=== PATIENT | male | born 1980 | race African-American/Black ===

== ENCOUNTER 2017-07-22 18:38 | Emergency (ER) | payer SELFPAY ==
[2017-07-22] MEDS ORDERED: HYDROcodone/Acetaminophen 10/325 mg Tablet ONE (18:44)
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
== END 2017-07-22 19:30 | disposition home or self-care (01) ==
LOC: ERS 18:38
DX: S41.012A Laceration without foreign body of left shoulder, initial encounter (principal); R93.8 Abnormal findings on diagnostic imaging of other specified body structures; J45.909 Unspecified asthma, uncomplicated; B20 Human immunodeficiency virus [HIV] disease; J18.9 Pneumonia, unspecified organism; F41.9 Anxiety disorder, unspecified; F31.9 Bipolar disorder, unspecified; F20.9 Schizophrenia, unspecified; Z87.891 Personal history of nicotine dependence; Z79.899 Other long term (current) drug therapy; V43.52XA Car driver injured in collision with other type car in traffic accident, initial encounter
CPT/HCPCS: 71045

== ENCOUNTER 2017-07-30 08:14 | Emergency (ER) | payer MEDICARE, SELFPAY ==
[2017-07-30] MEDS ORDERED: HYDROcodone/Acetaminophen 10/325 mg Tablet ONE (09:02)
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
== END 2017-07-30 09:33 | disposition home or self-care (01) ==
LOC: ERS 08:14
DX: S43.102A Unspecified dislocation of left acromioclavicular joint, initial encounter (principal); F31.9 Bipolar disorder, unspecified; J45.909 Unspecified asthma, uncomplicated; Z21 Asymptomatic human immunodeficiency virus [HIV] infection status; Z87.891 Personal history of nicotine dependence; Z79.899 Other long term (current) drug therapy; V49.9XXA Car occupant (driver) (passenger) injured in unspecified traffic accident, initial encounter

== ENCOUNTER 2022-10-14 04:28 | Emergency (ER) | payer MEDICAID, OTHER ==
[2022-10-14] MEDS ORDERED: Ibuprofen 200 MG TAB ONE (04:56)
[2022-10-14] MEDS ORDERED: Mag-Al 1200 mg/1200 mg/30 ML UDCUP ONE ×2 (04:56→06:39)
[2022-10-14] MEDS ORDERED: Ondansetron ODT 4 MG TAB ONE (04:56)
[2022-10-14 06:29] LABS: SARS-CoV-2 NAA Rapid Test DETECTED (NotDetected)
[2022-10-14] MEDS ORDERED: Lidocaine 2% Viscous Solution 10 ML, Aluminum & Magnesium Hydroxide 30 ML SSW SCH (07:00)
== END 2022-10-14 08:15 | disposition home or self-care (01) ==
LOC: ERS 04:28
DX: U07.1 COVID-19 (principal); F17.210 Nicotine dependence, cigarettes, uncomplicated
CPT/HCPCS: 0240U; 71045; 87081; 87430; 99284; Q0162

== ENCOUNTER 2022-11-05 08:35 | Emergency (ER) | payer OTHER ==
[2022-11-05 09:15] LABS: Hematocrit 27.5 % (42.0-52.0); Hemoglobin 8.7 g/dL (14.0-18.0); Mean Corpuscular HGB CONC 31.6 g/dL (32.0-36.0); Mean Corpuscular Volume 82.3 fl (78.0-98.0); Mean Platelet Volume 10.3 fL (7.4-10.4); Platelet Count 459 10x3/uL (130-400); Red Blood Cell (RBC) Count 3.34 mill/uL (4.70-6.10); White Blood Cell (WBC) Count 9.4 10x3/uL (4.8-10.8)
[2022-11-05 09:17] LABS: Delete Auto Diff?? YES; Manual Diff?? YES
[2022-11-05] MEDS ORDERED: Ketorolac Tromethamine 30 MG/ML VIAL ONE (09:21)
[2022-11-05 09:46] LABS: Anisocytosis SLIGHT = 6-15 cells HPF (0-5); Band 9 % (5-11); Burr Cells SLIGHT = 2-5 cells HPF (0-1); CellaVision Operator ID lab.dlt; Lymphocytes 4 % (21-51); Monocytes 14 % (0-10); Neutrophil 73 % (42-75); Ovalocytes SLIGHT = 2-5 cells HPF (0-1); Platelet Adequacy Comment Platelets Increased; Poikilocytosis SLIGHT = 6-15 cells HPF (0-5); Polychromasia SLIGHT = 2-3 cells HPF (0-2); Reactive Lymphocytes 1 % (0-10); Total Cell Count 102
[2022-11-05 09:52] LABS: ALT (SGPT) 9 U/L (8-55); AST (SGOT) 18 U/L (5-34); Albumin 2.5 g/dL (3.5-5.0); Alkaline Phosphatase 42 U/L (40-110); Anion Gap 12 mmol/L (10-20); BUN (Urea Nitrogen) 21 mg/dL (8.9-20.6); Bilirubin, Total 0.2 mg/dL (0.2-1.2); Calc. Creatinine Clearance 0 mL/min (70-130); Calcium 8.5 mg/dL (7.8-10.44); Carbon Dioxide 20 mmol/L (22-29); Chloride 107 mmol/L (98-107); Estimated GFR 116; Glucose 166 mg/dL (70-105); Potassium 3.8 mmol/L (3.5-5.1); Protein, Total 6.5 g/dL (6.0-8.3); Sodium 135 mmol/L (136-145)
[2022-11-05 12:41] LABS: Lactic Acid 1.3 mmol/L (0.5-2.2)
[2022-11-05 12:48] LABS: Bacteria/HPF None Seen HPF (None Seen); Bilirubin Negative (Negative); Blood, Urine Negative (Negative); CAUTI Indications for Culture Dysuria,urgency,freq; Clarity Clear (Clear); Glucose, Urine (Dipstick) Normal (Negative); Ketone, Urine Negative (Negative); Leukocyte Negative Leu/uL (Negative); Nitrite Negative (Negative); Protein, Urine (Dipstick) 10 mg/dL (Neg-Trace); RBC/HPF 0-3 HPF (0-3); Squamous Epithelial None Seen HPF (0-3); Urobilinogen Normal mg/dL (Less than 2); WBC/HPF 0-3 HPF (0-3); pH, Urine 6.5 (5.0-9.0)
[2022-11-05 12:52] LABS: Urine Culture Reflex No No
[2022-11-05 13:14] LABS: Specific Gravity, Urine Greater than 1.060 (1.002-1.036)
[2022-11-05] MEDS ORDERED: Iopamidol-370 76% 500 ML MDV (1 ML CHARGE) ONE (15:29)
== END 2022-11-05 13:29 | disposition short-term general hospital (02) ==
LOC: ERS 08:35
DX: R50.9 Fever, unspecified (principal); D64.9 Anemia, unspecified; R06.00 Dyspnea, unspecified; B20 Human immunodeficiency virus [HIV] disease; F17.210 Nicotine dependence, cigarettes, uncomplicated
CPT/HCPCS: 36415; 71045; 71275; 80053; 81001; 83605; 85025; 87040; 93005; 96361; 96374; J1885; Q9967

== ENCOUNTER 2023-08-06 00:22 | Inpatient (IN) | payer OTHER ==
[2023-08-06 01:35] VITALS: BMI 22.4
[2023-08-06] MEDS ORDERED: guaiFENesin/Codeine 200 mg/20 mg 10 ml Cup PO PRN (01:46)
[2023-08-06] MEDS ORDERED: Albuterol 2.5 MG (3 mL) NEB NEB PRN (01:48)
[2023-08-06] MEDS ORDERED: hydrOXYzine 25 MG TAB PO PRN (01:50)
[2023-08-06] MEDS ORDERED: Ondansetron ODT 4 MG TAB PO PRN (01:52)
[2023-08-06] MEDS ORDERED: Ondansetron PF 4 MG/2 ML Vial IVP PRN (01:52)
[2023-08-06] MEDS ORDERED: Acetaminophen 325 MG TAB PO PRN (01:52)
[2023-08-06] MEDS: Doxycycline 100 MG in Sodium Chloride 0.9% 100 ML IVPB SCH (03:05)
[2023-08-06] MEDS: Gabapentin 100 MG CAP PO PRN (03:08)
[2023-08-06 05:36] LABS: ALT (SGPT) 5 U/L (8-55); AST (SGOT) 17 U/L (5-34); Albumin 2.8 g/dL (3.5-5.0); Alkaline Phosphatase 54 U/L (40-110); Anion Gap 12 mmol/L (10-20); BUN (Urea Nitrogen) 15 mg/dL (8.9-20.6); Bilirubin, Total 0.7 mg/dL (0.2-1.2); Calc. Creatinine Clearance 89 mL/min (70-130); Calcium 8.5 mg/dL (7.8-10.44); Carbon Dioxide 20 mmol/L (22-29); Chloride 112 mmol/L (98-107); Estimated GFR 94; Globulin 4.6 g/dL (2.4-3.5); Glucose 163 mg/dL (70-105); Potassium 4.7 mmol/L (3.5-5.1); Protein, Total 7.4 g/dL (6.0-8.3); Sodium 139 mmol/L (136-145)
[2023-08-06 06:00] LABS: #Basophils Less than 0.03 10x3/uL (0.0-0.2); #Eosinphils Less than 0.03 10x3/uL (0.0-0.7); %Basophils 0.2 % (0.0-1.0); %Lymphocytes 6.9 % (21.0-51.0); %Monocytes 4.5 % (0.0-10.0); %Neutrophils 87.3 % (42.0-75.0); Hematocrit 38.7 % (42.0-52.0); Hemoglobin 12.4 g/dL (14.0-18.0); Mean Corpuscular Hemoglobin 26.9 pg (27.0-31.0); Mean Corpuscular Volume 83.9 fL (78.0-98.0); Mean Platelet Volume 11.2 fL (7.4-10.4); Platelet Count 175 10x3/uL (130-400); RBC Distribution Width 14.6 % (11.5-14.5); Red Blood Cell (RBC) Count 4.61 mill/uL (4.70-6.10)
[2023-08-06] MEDS: Mometasone 100 MCG/Formoterol 5 MCG 120 PUFF INHALER INH SCH (07:16)
[2023-08-06] MEDS: Famotidine/PF 20 mg/2ml Vial SLOW IVP SCH (07:56)
[2023-08-06] MEDS: Famotidine 20 MG TAB PO SCH (07:58)
[2023-08-06] MEDS: LevoFLOXacin 750 mg/D5W 750 MG in Premix 1 BAG IVPB SCH (07:58)
[2023-08-06 08:06] VITALS: TEMP 97.7
[2023-08-06] MEDS ORDERED: Azithromycin 500 MG in Sodium Chloride 0.9% 250 ML 250 ML IVPB SCH (09:00)
[2023-08-06] MEDS ORDERED: [UNRECOGNIZED DRUG - OTHER] PO SCH (09:00)
[2023-08-06 11:47] VITALS: BP 119/81
[2023-08-06] MEDS ORDERED: QUEtiapine 100 MG TAB PO SCH (21:00)
== END 2023-08-06 13:02 | disposition left against medical advice (07) | DRG 975 ==
LOC: T4-A 01:15
PROVIDERS: ADMIT Student in an Organized Health Care Education/Training Program; ATTEND Internal Medicine
DX: B20 Human immunodeficiency virus [HIV] disease (principal); J44.0 Chronic obstructive pulmonary disease with (acute) lower respiratory infection; J18.9 Pneumonia, unspecified organism; G40.909 Epilepsy, unspecified, not intractable, without status epilepticus; J45.909 Unspecified asthma, uncomplicated; F19.10 Other psychoactive substance abuse, uncomplicated; F17.210 Nicotine dependence, cigarettes, uncomplicated; Z88.2 Allergy status to sulfonamides; Z88.1 Allergy status to other antibiotic agents; Z79.51 Long term (current) use of inhaled steroids; Z79.891 Long term (current) use of opiate analgesic; Z90.49 Acquired absence of other specified parts of digestive tract
CPT/HCPCS: 36415; 80053; 85025; 94664; J1956; J3490

== ENCOUNTER 2024-02-10 15:04 | Emergency (ER) | payer OTHER, MEDICARE ==
[2024-02-10 15:35] LABS: #Basophils 0.03 10x3/uL (0.0-0.2); %Basophils 0.8 % (0.0-1.0); %Eosinophils 4.8 % (0.0-10.0); %Lymphocytes 25.7 % (21.0-51.0); %Neutrophils 50.4 % (42.0-75.0); Hematocrit 37.8 % (42.0-52.0); Hemoglobin 12.2 g/dL (14.0-18.0); Mean Corpuscular HGB CONC 32.3 g/dL (32.0-36.0); Mean Corpuscular Hemoglobin 26.7 pg (27.0-31.0); Mean Corpuscular Volume 82.7 fL (78.0-98.0); Platelet Count 222 10x3/uL (130-400); RBC Distribution Width 14.3 % (11.5-14.5); Red Blood Cell (RBC) Count 4.57 mill/uL (4.70-6.10)
[2024-02-10 15:48] LABS: ALT (SGPT) 7 U/L (8-55); AST (SGOT) 14 U/L (5-34); Albumin 3.1 g/dL (3.5-5.0); Alkaline Phosphatase 72 U/L (40-110); Anion Gap 12 mmol/L (10-20); BUN (Urea Nitrogen) 14 mg/dL (8.9-20.6); Bilirubin, Total 0.4 mg/dL (0.2-1.2); Calc. Creatinine Clearance 0 mL/min (70-130); Calcium 9.3 mg/dL (7.8-10.44); Carbon Dioxide 23 mmol/L (22-29); Chloride 110 mmol/L (98-107); Estimated GFR 91; Globulin 4.7 g/dL (2.4-3.5); Glucose 102 mg/dL (70-105); Potassium 4.1 mmol/L (3.5-5.1); Protein, Total 7.8 g/dL (6.0-8.3); Sodium 141 mmol/L (136-145)
[2024-02-10] MEDS ORDERED: Morphine 4 MG/ML VIAL ONE (17:26)
[2024-02-10] MEDS ORDERED: Ketorolac Tromethamine 30 MG (1 mL) VIAL ONE (17:26)
== END 2024-02-10 18:30 | disposition home or self-care (01) ==
LOC: ERS 15:04
DX: K61.1 Rectal abscess (principal); B20 Human immunodeficiency virus [HIV] disease; F17.210 Nicotine dependence, cigarettes, uncomplicated
CPT/HCPCS: 36415; 74177; 80053; 83605; 85025; J1885; J2272; 96374; 96375

== ENCOUNTER 2024-02-19 15:10 | Emergency (ER) | payer OTHER ==
[~2024-02-19 15:10] MED LIST: Iopamidol-370 76% 500 ML MDV (1 ML CHARGE) ONE
[2024-02-19] MEDS ORDERED: Ondansetron PF 4 MG/2 ML Vial ONE (15:54)
[2024-02-19] MEDS ORDERED: Ketorolac Tromethamine 30 MG (1 mL) VIAL ONE (15:55)
[2024-02-19] MEDS ORDERED: Pantoprazole 40 MG VIAL ONE (15:56)
[2024-02-19 16:18] LABS: ALT (SGPT) 7 U/L (8-55); AST (SGOT) 16 U/L (5-34); Albumin 2.9 g/dL (3.5-5.0); Alkaline Phosphatase 52 U/L (40-110); Anion Gap 14 mmol/L (10-20); BUN (Urea Nitrogen) 12 mg/dL (8.9-20.6); Bilirubin, Total 0.5 mg/dL (0.2-1.2); Calc. Creatinine Clearance 0 mL/min (70-130); Calcium 8.6 mg/dL (7.8-10.44); Carbon Dioxide 21 mmol/L (22-29); Chloride 109 mmol/L (98-107); Estimated GFR 116; Glucose 100 mg/dL (70-105); Lipase 21 U/L (8-78); Potassium 3.9 mmol/L (3.5-5.1); Protein, Total 7.9 g/dL (6.0-8.3); Sodium 140 mmol/L (136-145)
[2024-02-19 16:38] LABS: Anisocytosis SLIGHT = 6-15 cells HPF (0-5); Macrocytosis SLIGHT = 6-15 cells HPF (0-5); Ovalocytes SLIGHT = 2-5 cells HPF (0-1); Platelet Adequacy Comment Platelets Normal; Polychromasia SLIGHT = 2-3 cells HPF (0-2); Tear Drops SLIGHT = 2-5 cells HPF (0-1)
[2024-02-19 16:49] LABS: #Basophils 0.04 10x3/uL (0.0-0.2); %Basophils 1.4 % (0.0-1.0); %Eosinophils 4.6 % (0.0-10.0); %Lymphocytes 20.7 % (21.0-51.0); %Monocytes 24.6 % (0.0-10.0); %Neutrophils 46.2 % (42.0-75.0); Hematocrit 37.2 % (42.0-52.0); Hemoglobin 11.9 g/dL (14.0-18.0); Mean Corpuscular Hemoglobin 26.3 pg (27.0-31.0); Mean Corpuscular Volume 82.1 fL (78.0-98.0); Mean Platelet Volume 9.7 fL (7.4-10.4); Platelet Count 220 10x3/uL (130-400); RBC Distribution Width 14.2 % (11.5-14.5); Red Blood Cell (RBC) Count 4.53 mill/uL (4.70-6.10)
[2024-02-19 17:15] LABS: Bacteria/HPF None Seen HPF (None Seen); Bilirubin Negative (Negative); Blood, Urine Negative (Negative); CAUTI Indications for Culture Dysuria,urgency,freq; Clarity Clear (Clear); Glucose, Urine (Dipstick) Normal (Negative); Ketone, Urine Negative (Negative); Leukocyte Negative Leu/uL (Negative); Nitrite Negative (Negative); Protein, Urine (Dipstick) 10 mg/dL (Neg-Trace); RBC/HPF None Seen HPF (0-3); Specific Gravity, Urine 1.031 (1.002-1.036); Squamous Epithelial None Seen HPF (0-3); Urobilinogen Normal mg/dL (Less than 2); WBC/HPF 0-3 HPF (0-3)
[2024-02-19 17:16] LABS: Urine Culture Reflex No No
[2024-02-19] MEDS ORDERED: Sucralfate 1 GM/10 ML UDCUP ONE (18:00)
== END 2024-02-19 18:05 | disposition home or self-care (01) ==
LOC: ERS 15:10
DX: K29.70 Gastritis, unspecified, without bleeding (principal); B20 Human immunodeficiency virus [HIV] disease; Z55.6 Problems related to health literacy; Z87.891 Personal history of nicotine dependence
CPT/HCPCS: 74177; 80053; 81001; 83605; 83690; 85025; J1885; J2405; J2470; 36415

== ENCOUNTER 2024-02-19 23:01 | Emergency (ER) | payer OTHER ==
[2024-02-20] MEDS ORDERED: Morphine 4 MG/ML VIAL ONE (00:56)
[2024-02-20] MEDS ORDERED: Ondansetron PF 4 MG/2 ML Vial ONE (00:57)
[2024-02-20] MEDS ORDERED: Ketorolac Tromethamine 30 MG (1 mL) VIAL ONE (02:52)
[2024-02-20 03:29] LABS: Bacteria/HPF None Seen HPF (None Seen); Bilirubin Negative (Negative); Blood, Urine Negative (Negative); CAUTI Indications for Culture Pelvic or flank pain; Clarity Clear (Clear); Glucose, Urine (Dipstick) Normal (Negative); Ketone, Urine Negative (Negative); Leukocyte Negative Leu/uL (Negative); Nitrite Negative (Negative); Protein, Urine (Dipstick) 10 mg/dL (Neg-Trace); RBC/HPF None Seen HPF (0-3); Specific Gravity, Urine 1.026 (1.002-1.036); Squamous Epithelial None Seen HPF (0-3); Urobilinogen Normal mg/dL (Less than 2); WBC/HPF None Seen HPF (0-3)
[2024-02-20 03:37] LABS: Amphetamine Detected (NotDetected); Barbiturates Screen Not Detected (NotDetected); Benzodiazepine Screen Not Detected (NotDetected); Cocaine Metabolite Screen Not Detected (NotDetected); Methadone Not Detected (NotDetected); Methamphetamine Detected (NotDetected); Opiate Screen Detected (NotDetected); Oxycodone Screen Not Detected (NotDetected); Phencyclidine (PCP) Not Detected (NotDetected); THC/Cannabinoid Screen Not Detected (NotDetected); Tricyclic Screen Not Detected (NotDetected)
[2024-02-20 03:43] LABS: Urine Culture Reflex No No
== END 2024-02-20 08:52 | disposition home or self-care (01) ==
LOC: ERS 23:01
DX: R10.9 Unspecified abdominal pain (principal); B20 Human immunodeficiency virus [HIV] disease; Z87.891 Personal history of nicotine dependence; K29.70 Gastritis, unspecified, without bleeding; Z55.6 Problems related to health literacy
CPT/HCPCS: 74176; 74177; 80053; 80306; 81001; 83605; 83690; 85025; 96361; 96374; 96375; 99284; J1885 ×2; J2272; J2405 ×2; J2470; 36415

== ENCOUNTER 2024-03-13 15:58 | Emergency (ER) | payer OTHER ==
[2024-03-13 16:49] LABS: Bacteria/HPF None Seen HPF (None Seen); Bilirubin Negative (Negative); Blood, Urine Negative (Negative); CAUTI Indications for Culture Pelvic or flank pain; Clarity Clear (Clear); Glucose, Urine (Dipstick) Normal (Negative); Ketone, Urine Negative (Negative); Leukocyte Negative Leu/uL (Negative); Nitrite Negative (Negative); Protein, Urine (Dipstick) 30 mg/dL (Neg-Trace); RBC/HPF 0-3 HPF (0-3); Specific Gravity, Urine 1.013 (1.002-1.036); Squamous Epithelial 0-3 HPF (0-3); WBC/HPF 0-3 HPF (0-3)
[2024-03-13 17:03] LABS: Urine Culture Reflex No No
[2024-03-13 17:07] LABS: #Basophils 0.04 10x3/uL (0.0-0.2); %Basophils 0.8 % (0.0-1.0); %Lymphocytes 15.7 % (21.0-51.0); %Monocytes 19.7 % (0.0-10.0); %Neutrophils 59.1 % (42.0-75.0); Hematocrit 35.3 % (42.0-52.0); Mean Corpuscular HGB CONC 31.2 g/dL (32.0-36.0); Mean Corpuscular Hemoglobin 25.6 pg (27.0-31.0); Mean Corpuscular Volume 82.1 fL (78.0-98.0); Mean Platelet Volume 10.2 fL (7.4-10.4); Platelet Count 240 10x3/uL (130-400); RBC Distribution Width 14.8 % (11.5-14.5)
[2024-03-13] MEDS ORDERED: Ondansetron ODT 4 MG TAB ONE (17:27)
[2024-03-13] MEDS ORDERED: Ketorolac Tromethamine 30 MG (1 mL) VIAL ONE (17:27)
[2024-03-13 17:31] LABS: ALT (SGPT) 16 U/L (Less than 45); AST (SGOT) 24 U/L (11-34); Albumin 2.7 g/dL (3.1-4.5); Alkaline Phosphatase 63 U/L (40-110); Anion Gap 13 mmol/L (10-20); BUN (Urea Nitrogen) 12 mg/dL (8.9-20.6); Calc. Creatinine Clearance 0 mL/min (70-130); Calcium 8.5 mg/dL (7.8-10.44); Carbon Dioxide 25 mmol/L (22-29); Chloride 107 mmol/L (98-107); Estimated GFR 96; Globulin 5.1 g/dL (2.4-3.5); Glucose 174 mg/dL (70-105); Lipase 31 U/L (8-78); Potassium 3.8 mmol/L (3.5-5.1); Protein, Total 7.8 g/dL (6.0-8.3); Sodium 141 mmol/L (136-145)
[2024-03-13 17:35] LABS: Troponin I Less than 0.010 ng/mL (< 0.028)
== END 2024-03-13 20:16 | disposition home or self-care (01) ==
LOC: ERS 15:58
DX: R10.13 Epigastric pain (principal); B20 Human immunodeficiency virus [HIV] disease; Z87.891 Personal history of nicotine dependence
CPT/HCPCS: 71046; 74177; 80053; 81001; 83690; 84484; 85025; 93005; 96374; 99284; J1885; Q0162; 36415; Q9967

== ENCOUNTER 2024-04-01 11:08 | Inpatient (IN) | payer OTHER ==
[2024-04-01] MEDS ORDERED: Iopamidol-370 76% 500 ML MDV (1 ML CHARGE) ONE (11:11)
[2024-04-01] MEDS ORDERED: fentaNYL 50 mcg/mL 1 mL Vial ONE (11:28)
[2024-04-01 11:51] LABS: Hematocrit 32.9 % (42.0-52.0); Hemoglobin 10.1 g/dL (14.0-18.0); Mean Corpuscular HGB CONC 30.7 g/dL (32.0-36.0); Mean Corpuscular Hemoglobin 25.2 pg (27.0-31.0); Mean Platelet Volume 9.3 fL (7.4-10.4); Platelet Count 216 10x3/uL (130-400); RBC Distribution Width 15.5 % (11.5-14.5); Red Blood Cell (RBC) Count 4.01 mill/uL (4.70-6.10)
[2024-04-01 11:59] LABS: ALT (SGPT) Less than 7 U/L (Less than 45); AST (SGOT) 17 U/L (11-34); Albumin 2.8 g/dL (3.1-4.5); Alkaline Phosphatase 43 U/L (40-110); Anion Gap 15 mmol/L (10-20); BUN (Urea Nitrogen) 10 mg/dL (8.9-20.6); Bilirubin, Total 0.5 mg/dL (0.3-1.2); Calc. Creatinine Clearance 0 mL/min (70-130); Calcium 8.8 mg/dL (7.8-10.44); Carbon Dioxide 25 mmol/L (22-29); Chloride 104 mmol/L (98-107); Estimated GFR 110; Glucose 94 mg/dL (70-105); Magnesium 1.9 mg/dL (1.6-2.6); Potassium 4.9 mmol/L (3.5-5.1); Protein, Total 7.8 g/dL (6.0-8.3); Sodium 139 mmol/L (136-145)
[2024-04-01 12:05] LABS: Troponin I Less than 0.010 ng/mL (< 0.028)
[2024-04-01 12:27] LABS: #Basophils Less than 0.03 10x3/uL (0.0-0.2); #Eosinophils Less than 0.03 10x3/uL (0.0-0.7); %Basophils 0.5 % (0.0-1.0); %Eosinophils 0.3 % (0.0-10.0); %Lymphocytes 16.3 % (21.0-51.0); %Monocytes 12.1 % (0.0-10.0); %Neutrophils 68.7 % (42.0-75.0); Ovalocytes MODERATE= 6-15 cells (100X) (0-1/hpf); Plasma Cells 0 % (0-0); Platelet Adequacy Comment Appears Adequate
[2024-04-01] MEDS ORDERED: Morphine 4 MG/ML VIAL ONE (13:16)
[2024-04-01] MEDS ORDERED: Sodium Chloride 0.9% 100 ML ONE (14:41)
[2024-04-01] MEDS ORDERED: Cefepime 2 GM VIAL ONE (14:41)
[2024-04-01] MEDS ORDERED: HYDROmorphone 0.5 MG/0.5 ML SYRINGE ONE (14:41)
[2024-04-01] MEDS ORDERED: Albuterol 2.5 MG (3 mL) NEB NEB PRN (15:48)
[2024-04-01] MEDS ORDERED: Gabapentin 100 MG CAP PO PRN (15:48)
[2024-04-01] MEDS ORDERED: Ondansetron PF 4 MG/2 ML Vial IVP PRN (15:49)
[2024-04-01] MEDS ORDERED: Ondansetron ODT 4 MG TAB PO PRN (15:49)
[2024-04-01] MEDS ORDERED: Acetaminophen 650 MG Suppository PR PRN (15:49)
[2024-04-01] MEDS ORDERED: Albuterol 200 PUFF INH INH PRN (16:11)
[2024-04-01 18:46] LABS: Bacteria/HPF None Seen HPF (None Seen); Bilirubin Negative (Negative); Blood, Urine Negative (Negative); CAUTI Indications for Culture Alt mental st,lethar; Clarity Clear (Clear); Glucose, Urine (Dipstick) Normal (Negative); Ketone, Urine Negative (Negative); Leukocyte Negative Leu/uL (Negative); Nitrite Negative (Negative); Protein, Urine (Dipstick) 30 mg/dL (Neg-Trace); RBC/HPF 0-3 HPF (0-3); Specific Gravity, Urine 1.047 (1.002-1.036); Squamous Epithelial None Seen HPF (0-3); Urobilinogen Normal mg/dL (Less than 2); WBC/HPF 0-3 HPF (0-3); pH, Urine 6.5 (5.0-9.0)
[2024-04-01 18:48] LABS: Urine Culture Reflex No No
[2024-04-01 18:50] LABS: Amphetamine Detected (NotDetected); Barbiturates Screen Not Detected (NotDetected); Benzodiazepine Screen Not Detected (NotDetected); Cocaine Metabolite Screen Not Detected (NotDetected); Methadone Not Detected (NotDetected); Methamphetamine Detected (NotDetected); Opiate Screen Detected (NotDetected); Oxycodone Screen Not Detected (NotDetected); Phencyclidine (PCP) Detected (NotDetected); THC/Cannabinoid Screen Not Detected (NotDetected); Tricyclic Screen Not Detected (NotDetected)
[2024-04-01 19:06] VITALS: BMI 18.0
[2024-04-01] MEDS: Ipratropium/Albuterol 3 ML NEB NEB SCH (19:17)
[2024-04-01 19:44] LABS: Legionella Urinary Ag Negative (Negative); Strep pneumo Urine Ag NEGATIVE (NEGATIVE)
[2024-04-01] MEDS: Morphine 4 MG/ML VIAL SLOW IVP PRN (20:44)
[2024-04-01] MEDS: Nystatin 500,000 UNITS/5 ML UDCUP SSW SCH (20:46)
[2024-04-01] MEDS: Famotidine/PF 20 mg/2ml Vial SLOW IVP SCH (20:46)
[2024-04-01] MEDS: Cefepime 2 GM in Sodium Chloride 0.9% 100 ML IVPB SCH (23:04)
[2024-04-02] MEDS: Vancomycin 1 GM in Premix 1 BAG IVPB SCH (00:55)
[2024-04-02 06:19] LABS: Hematocrit 28.1 % (42.0-52.0); Hemoglobin 8.9 g/dL (14.0-18.0); Mean Corpuscular HGB CONC 31.7 g/dL (32.0-36.0); Mean Corpuscular Hemoglobin 25.4 pg (27.0-31.0); Mean Corpuscular Volume 80.3 fL (78.0-98.0); Mean Platelet Volume 9.7 fL (7.4-10.4); Platelet Count 203 10x3/uL (130-400); RBC Distribution Width 15.5 % (11.5-14.5)
[2024-04-02 06:33] LABS: Vancomycin, Random 26.8 ug/mL (See Comment)
[2024-04-02 06:37] LABS: ALT (SGPT) Less than 7 U/L (Less than 45); AST (SGOT) 18 U/L (11-34); Albumin 2.5 g/dL (3.1-4.5); Alkaline Phosphatase 44 U/L (40-110); Anion Gap 14 mmol/L (10-20); BUN (Urea Nitrogen) 9 mg/dL (8.9-20.6); Bilirubin, Total 0.6 mg/dL (0.3-1.2); Calc. Creatinine Clearance 99 mL/min (70-130); Calcium 8.3 mg/dL (7.8-10.44); Carbon Dioxide 21 mmol/L (22-29); Chloride 105 mmol/L (98-107); Estimated GFR 116; Globulin 4.7 g/dL (2.4-3.5); Glucose 85 mg/dL (70-105); Potassium 3.9 mmol/L (3.5-5.1); Protein, Total 7.2 g/dL (6.0-8.3); Sodium 136 mmol/L (136-145)
[2024-04-02 07:03] LABS: Band 9 % (5-11); Large Platelets 5.9 % (0-5); Lymphocytes 11 % (21-51); Monocytes 13 % (0-10); Neutrophil 67 % (42-75); Platelet Adequacy Comment Platelets Normal; Smudge Cells 25.7 %; Tear Drops SLIGHT = 2-5 cells HPF (0-1)
[2024-04-02 07:24] LABS: Influenza A by NAA Not Detected (NotDetected); Influenza B by NAA Not Detected (NotDetected); SARS-CoV-2 NAA Rapid Test Not Detected (NotDetected)
[2024-04-02] MEDS ORDERED: Ipratropium/Albuterol 3 ML NEB NEB PRN (08:19)
[2024-04-02] MEDS: Bictegrav/Emtricit/Tenofov Ala 1 TAB Tab PO SCH (09:51)
[2024-04-02 10:07] VITALS: BMI 18.0
[2024-04-02] MEDS ORDERED: Magnevist 469MG/ML 20 ML VIAL ONE (11:02)
[2024-04-02] MEDS: Vancomycin 1.5 GRAM/300 ML BAG 1.5 GM in Premix 1 BAG IVPB SCH (20:31)
[2024-04-02] MEDS: Acetaminophen 325 MG TAB PO PRN (20:35)
[2024-04-03] MEDS: Ketorolac Tromethamine 30 MG (1 mL) VIAL IVP PRN (00:54)
[2024-04-03] MEDS: FLU (Fluarix Triv) TS24-25(6MOS UP)/PF 45 MCG/0.5 ML Syringe IM ONE (09:29)
[2024-04-04 06:01] LABS: Hematocrit 28.4 % (42.0-52.0); Hemoglobin 9.1 g/dL (14.0-18.0); Mean Corpuscular Hemoglobin 25.7 pg (27.0-31.0); Mean Corpuscular Volume 80.2 fL (78.0-98.0); Mean Platelet Volume 10.1 fL (7.4-10.4); Platelet Count 220 10x3/uL (130-400); RBC Distribution Width 15.3 % (11.5-14.5); Red Blood Cell (RBC) Count 3.54 mill/uL (4.70-6.10)
[2024-04-04 06:28] LABS: Vancomycin, Random 26.9 ug/mL (See Comment)
[2024-04-04 06:30] LABS: Anion Gap 15 mmol/L (10-20); BUN (Urea Nitrogen) 13 mg/dL (8.9-20.6); Calc. Creatinine Clearance 93 mL/min (70-130); Calcium 8.6 mg/dL (7.8-10.44); Carbon Dioxide 21 mmol/L (22-29); Chloride 106 mmol/L (98-107); Estimated GFR 114; Glucose 92 mg/dL (70-105); Potassium 4.1 mmol/L (3.5-5.1); Sodium 138 mmol/L (136-145)
[2024-04-04 11:52] VITALS: BP 99/62; TEMP 98.5
[2024-04-04] MEDS ORDERED: Vancomycin HCl 750 MG in Sodium Chloride 0.9% 250 ML 250 ML IVPB SCH (12:00)
== END 2024-04-04 13:58 | disposition home or self-care (01) | DRG 974 ==
LOC: ERS 11:08 → 2NO 15:33 → OBSVTOIN 04-02 14:43 → T4-B 04-03 19:47
PROVIDERS: ADMIT Internal Medicine; ATTEND Internal Medicine
PROC: 4A10X4Z Monitoring of Central Nervous Electrical Activity, External Approach (ICD-10-PCS; principal; 2024-04-02)
PROC: 3E03329 Introduction of Other Anti-infective into Peripheral Vein, Percutaneous Approach (ICD-10-PCS; 2024-04-02)
DX: A41.9 Sepsis, unspecified organism (principal); G92.8 Other toxic encephalopathy; B20 Human immunodeficiency virus [HIV] disease; C15.9 Malignant neoplasm of esophagus, unspecified; J44.0 Chronic obstructive pulmonary disease with (acute) lower respiratory infection; E44.0 Moderate protein-calorie malnutrition; Z68.1 Body mass index [BMI] 19.9 or less, adult; G40.909 Epilepsy, unspecified, not intractable, without status epilepticus; J18.9 Pneumonia, unspecified organism; F11.10 Opioid abuse, uncomplicated; F15.10 Other stimulant abuse, uncomplicated; R61 Generalized hyperhidrosis; J43.9 Emphysema, unspecified; J44.89 Other specified chronic obstructive pulmonary disease; Z90.49 Acquired absence of other specified parts of digestive tract; Z79.899 Other long term (current) drug therapy
CPT/HCPCS: 36415; 70450; 70553; 71045; 71275; 76376; 80048; 80053; 80202; 80306; 81001; 83605; 83735; 83880; 84145; 84484; 85025; 85027; 87040; 87081; 87449; 87633; 87899; 93005; 94640; 96375; 96376; G0378; J0692; J1171; J1885; J2270; J3010; J3370; J3490; J7620; Q9967

== ENCOUNTER 2024-04-05 21:32 | Emergency (ER) | payer OTHER ==
[2024-04-05 22:19] LABS: Hematocrit 30.9 % (42.0-52.0); Hemoglobin 9.9 g/dL (14.0-18.0); Mean Corpuscular Hemoglobin 25.6 pg (27.0-31.0); Mean Corpuscular Volume 79.8 fL (78.0-98.0); Platelet Count 336 10x3/uL (130-400); RBC Distribution Width 15.1 % (11.5-14.5); Red Blood Cell (RBC) Count 3.87 mill/uL (4.70-6.10)
[2024-04-05] MEDS ORDERED: HYDROcodone/Acetaminophen 5/325 mg Tablet ONE (22:28)
[2024-04-05 22:39] LABS: ALT (SGPT) 8 U/L (Less than 45); AST (SGOT) 29 U/L (11-34); Albumin 2.7 g/dL (3.1-4.5); Alkaline Phosphatase 63 U/L (40-110); Anion Gap 12 mmol/L (10-20); BUN (Urea Nitrogen) 10 mg/dL (8.9-20.6); Bilirubin, Total 0.3 mg/dL (0.3-1.2); Calc. Creatinine Clearance 0 mL/min (70-130); Calcium 8.7 mg/dL (7.8-10.44); Carbon Dioxide 25 mmol/L (22-29); Chloride 107 mmol/L (98-107); Estimated GFR 115; Globulin 5.4 g/dL (2.4-3.5); Glucose 98 mg/dL (70-105); Lipase 34 U/L (8-78); Potassium 4.3 mmol/L (3.5-5.1); Protein, Total 8.1 g/dL (6.0-8.3); Sodium 140 mmol/L (136-145)
[2024-04-05 22:41] LABS: Troponin I 0.011 ng/mL (< 0.028)
[2024-04-05 22:44] LABS: Anisocytosis SLIGHT = 6-15 cells HPF (0-5); Band 3 % (5-11); Elliptocytes SLIGHT = 2-5 cells HPF (0-1); Eosinophils 2 % (0-10); Hypochromia SLIGHT = 6-15 cells HPF (0-5); Large Platelets 20.4 % (0-5); Lymphocytes 24 % (21-51); Monocytes 18 % (0-10); Neutrophil 20 % (42-75); Ovalocytes SLIGHT = 2-5 cells HPF (0-1); Platelet Adequacy Comment Platelets Normal; Poikilocytosis SLIGHT = 6-15 cells HPF (0-5); Polychromasia SLIGHT = 2-3 cells HPF (0-2); Reactive Lymphocytes 28 % (0-10); Smudge Cells 21.4 %; Toxic Granulation SLIGHT; Vacuoles SLIGHT
[2024-04-05] MEDS ORDERED: Ketorolac Tromethamine 30 MG (1 mL) VIAL ONE (22:45)
[2024-04-05] MEDS ORDERED: Sucralfate 1 GM/10 ML UDCUP ONE (23:38)
[2024-04-05] MEDS ORDERED: Morphine 4 MG/ML VIAL ONE (23:39)
[2024-04-05] MEDS ORDERED: Lidocaine Viscous Sol 2% 15 ml UD Cup ONE (23:39)
[2024-04-05] MEDS ORDERED: Mag-Al 1200 mg/1200 mg/30 ML UDCUP ONE (23:39)
[2024-04-05] MEDS ORDERED: Famotidine 20 MG TAB ONE (23:39)
== END 2024-04-06 00:20 | disposition home or self-care (01) ==
LOC: ERS 21:32
DX: J18.9 Pneumonia, unspecified organism (principal); R07.81 Pleurodynia; B20 Human immunodeficiency virus [HIV] disease; Z87.891 Personal history of nicotine dependence
CPT/HCPCS: 71045; 80053; 83605; 83690; 83735; 83880; 84484; 85025; 93005; J1885; J2270; 36415

== ENCOUNTER 2024-11-11 06:32 | Emergency (ER) | payer OTHER, MEDICAID ==
[2024-11-11 08:55] LABS: #Basophils 0.03 10x3/uL (0.0-0.2); #Eosinophils 0.45 10x3/uL (0.0-0.7); #Monocytes 1.07 10x3/uL (0.11-0.59); #Neutrophils 4.80 10x3/uL (1.40-6.50); %Basophils 0.4 % (0.0-1.0); %Eosinophils 6.0 % (0.0-10.0); %Lymphocytes 14.2 % (21.0-51.0); %Monocytes 14.4 % (0.0-10.0); %Neutrophils 64.5 % (42.0-75.0); Hematocrit 39.5 % (42.0-52.0); Hemoglobin 12.3 g/dL (14.0-18.0); Mean Corpuscular Hemoglobin 26.5 pg (27.0-31.0); Mean Corpuscular Volume 84.9 fL (78.0-98.0); Platelet Count 214 10x3/uL (130-400); Red Blood Cell (RBC) Count 4.65 mill/uL (4.70-6.10); White Blood Cell (WBC) Count 7.45 10x3/uL (4.8-10.8)
[2024-11-11 09:26] LABS: ALT (SGPT) Less than 7 U/L (Less than 45); AST (SGOT) 16 U/L (11-34); Albumin 3.6 g/dL (3.1-4.5); Alkaline Phosphatase 72 U/L (40-110); Anion Gap 15 mmol/L (10-20); BUN (Urea Nitrogen) 14 mg/dL (8.9-20.6); Bilirubin, Total 0.5 mg/dL (0.3-1.2); Calc. Creatinine Clearance 0 mL/min (70-130); Calcium 9.2 mg/dL (7.8-10.44); Carbon Dioxide 25 mmol/L (22-29); Chloride 104 mmol/L (98-107); Globulin 4.5 g/dL (2.4-3.5); Glucose 96 mg/dL (70-105); Potassium 3.7 mmol/L (3.5-5.1); Sodium 140 mmol/L (136-145)
[2024-11-11] MEDS ORDERED: Iopamidol-370 76% 500 ML MDV (1 ML CHARGE) ONE (09:42)
[2024-11-11] MEDS ORDERED: Ketorolac Tromethamine 30 MG (1 mL) VIAL ONE (10:00)
[2024-11-11] MEDS ORDERED: predniSONE 20 MG TAB ONE (10:00)
[2024-11-11] MEDS ORDERED: Clindamycin 150 MG CAP ONE (11:30)
== END 2024-11-11 12:04 | disposition home or self-care (01) ==
LOC: ERS 06:32
DX: J18.9 Pneumonia, unspecified organism (principal); J43.9 Emphysema, unspecified; B20 Human immunodeficiency virus [HIV] disease; K22.89 Other specified disease of esophagus; Z87.891 Personal history of nicotine dependence; Z79.899 Other long term (current) drug therapy
CPT/HCPCS: 71046; 71275; 80053; 83605; 84484; 85025; 87040; 87081; 87428; 87430; 93005; 94640; J1885; 36415; 96374; J7512; Q9967

== ENCOUNTER 2025-01-24 19:17 | Emergency (ER) | payer OTHER | END 2025-01-24 22:02 | disposition left against medical advice (07) | LOC: ERS 19:17 | DX: Z53.21 Procedure and treatment not carried out due to patient leaving prior to being seen by health care provider (principal) | CPT/HCPCS: 71045; 87428; 93005 ==